=== PATIENT | female | born 1990 | race African-American/Black ===

== ENCOUNTER 2016-11-28 14:38 | Emergency (ER) | payer OTHER | END 2016-11-28 15:59 | disposition home or self-care (01) | LOC: FER 14:38 | DX: S16.1XXA Strain of muscle, fascia and tendon at neck level, initial encounter (principal); J02.9 Acute pharyngitis, unspecified; M79.642 Pain in left hand; M25.511 Pain in right shoulder; V40.5XXA Car driver injured in collision with pedestrian or animal in traffic accident, initial encounter; Y92.410 Unspecified street and highway as the place of occurrence of the external cause | CPT/HCPCS: J0561; J1100; J1885 ==